=== PATIENT | male | born 1990 | race Caucasian/White ===

== ENCOUNTER → 2018-11-30 | Emergency (ER) | payer MEDICAID ==
[~2018-11-30] VITALS: Ht 170.2 cm; Wt 66.6 kg
[~2018-11-30] MED LIST: NO HOME MEDS
[2018-11-30 18:45] VITALS: BP 116/71
--- NOTE | 2018-11-30 18:58 | NUR ---
pt is homeless but unable to offer sack lunch as there are none to offer.
== END | disposition left against medical advice (07) ==
LOC: ER 19:41
DX: Z48.00 Encounter for change or removal of nonsurgical wound dressing (principal); Z53.21 Procedure and treatment not carried out due to patient leaving prior to being seen by health care provider

== ENCOUNTER 2023-01-03 16:31 | Emergency (ER) | payer MEDICAID ==
[~2023-01-03] VITALS: Ht 167.6 cm; Wt 64.8 kg
[2023-01-03 16:44] VITALS: BP 136/85; PULSE 108; RESP 16; TEMP 96.9; O2SAT 99
== END 2023-01-03 21:44 | disposition left against medical advice (07) ==
LOC: ER 16:32
DX: F32.A Depression, unspecified (principal); Z53.21 Procedure and treatment not carried out due to patient leaving prior to being seen by health care provider
CPT/HCPCS: 99281